=== PATIENT | male | born 1975 | race African-American/Black ===

== ENCOUNTER 2016-11-26 13:31 | Emergency (ER) | payer MEDICAID | END 2016-11-26 15:16 | disposition home or self-care (01) | LOC: D.ER 13:31 | DX: S93.601A Unspecified sprain of right foot, initial encounter (principal); V09.9XXA Pedestrian injured in unspecified transport accident, initial encounter; Y93.89 Activity, other specified; Y92.89 Other specified places as the place of occurrence of the external cause; F17.200 Nicotine dependence, unspecified, uncomplicated ==